=== PATIENT | male | born 1955 ===

== ENCOUNTER 2025-01-29 06:16 | Day surgery (SDC) | payer BC, SELFPAY ==
[2025-01-29 10:00] VITALS: BP 162/105
[2025-01-29 10:15] VITALS: BMI 26.3
[2025-01-29 10:16] VITALS: BMI 26.3
[2025-01-29 12:05] VITALS: BP 146/88
[2025-01-29 12:15] VITALS: BP 157/102
[2025-01-29 12:30] VITALS: BP 165/92
== END 2025-01-29 12:51 | disposition home or self-care (01) ==
LOC: GI 06:16
PROVIDERS: ATTENDING PHYSICIAN Internal Medicine Gastroenterology
DX: K64.0 First degree hemorrhoids (principal); K57.30 Diverticulosis of large intestine without perforation or abscess without bleeding; K63.89 Other specified diseases of intestine; K63.5 Polyp of colon; D37.4 Neoplasm of uncertain behavior of colon; D36.10 Benign neoplasm of peripheral nerves and autonomic nervous system, unspecified
CPT/HCPCS: 45390; 88305; 88341; 88342